=== PATIENT | male | born 1965 | race Caucasian/White ===

== ENCOUNTER 2025-06-11 10:49 | Emergency (ER) | payer MEDICAID ==
[~2025-06-11] VITALS: Ht 167.6 cm; Wt 79.4 kg
[2025-06-11 10:52] VITALS: TEMP 98.4
[2025-06-11 11:00] VITALS: BP 115/80; O2SAT 99
[2025-06-11 11:48] LABS: PLATELET COUNT (AUTO) 191 K/uL (150-450); RED BLOOD CELL COUNT(AUTO) 4.53 MIL/uL (4.5-6.0); RED CELL DISTRIBUTION WIDTH 13.9 % (11.5-15.0); WHITE BLOOD COUNT (AUTO) 5.2 K/uL (4.3-11.0)
[2025-06-11 11:50] LABS: APPEARANCE,URINE CLEAR (CLEAR); BLOOD, URINE NEGATIVE Ery/uL (NEGATIVE); LEUKOCYTE ESTERASE ,URINE NEGATIVE (NEGATIVE); NITRITE, URINE NEGATIVE (NEGATIVE); UGLUCOSE NEGATIVE (NEGATIVE)
[2025-06-11 11:54] LABS: CALCIUM, SERUM 9.2 mg/dL (8.5-10.1); CREATININE 1.3 mg/dL (0.6-1.3); SODIUM SERUM 144 mmol/L (136-145); UREA NITROGEN, BLOOD 23 mg/dL (7-18)
[2025-06-11 12:01] LABS: ALCOHOL, BLOOD < 3 mg/dL (0-10); ASPARTATE AMINOTRANSFERASE 10 U/L (15-37); TOTAL PROTEIN, SERUM 7.7 g/dL (6.4-8.2)
[2025-06-11 12:03] LABS: ADD URINE CULTURE NO; SQUAMOUS EPITHELIAL CELL,UR 0-2 /HPF (None Seen)
[2025-06-11 12:04] LABS: AMPHETAMINE, URINE NEGATIVE (NEGATIVE); BARBITURATE, URINE NEGATIVE (NEGATIVE); BENZODIAZEPINE, URINE NEGATIVE (NEGATIVE); CANNABINOID, URINE NEGATIVE (NEGATIVE); COCCAINE, URINE NEGATIVE (NEGATIVE); OPIATE, URINE NEGATIVE (NEGATIVE)
[2025-06-11] MEDS ORDERED: AMLO-213 PO (13:00)
[2025-06-11] MEDS ORDERED: QUET25TA PO (13:00)
[2025-06-11] MEDS ORDERED: BREX0.5T PO (13:00)
[2025-06-11] MEDS ORDERED: LOSA100T31 PO (13:00)
[2025-06-12] MEDS ORDERED: LOSARTAN POTASSIUM 50 MG TABLET PO SCH (09:00)
[2025-06-12] MEDS ORDERED: AMLODIPINE BESYLATE 10 MG TABLET PO SCH (09:00)
== END 2025-06-11 16:30 | disposition left against medical advice (07) ==
LOC: ER 10:57 → UNDOADMIN 14:06 → GPS 14:06 → ER 16:30
DX: R45.6 Violent behavior (principal); R45.1 Restlessness and agitation; Z79.899 Other long term (current) drug therapy; Z20.822 Contact with and (suspected) exposure to COVID-19
CPT/HCPCS: 36415; 80048-TC; 80076-TC; 81001; 85025-TC; G0480

== ENCOUNTER 2025-06-13 13:17 | Inpatient (IN) | payer MEDICAID ==
[~2025-06-13] VITALS: Ht 172.7 cm; Wt 79.4 kg
[~2025-06-13 13:17] MED LIST: AMLO-213 PO; BREX0.5T PO; LOSA100T31 PO; QUET25TA PO
[2025-06-13 14:23] LABS: PLATELET COUNT (AUTO) 199 K/uL (150-450); RED BLOOD CELL COUNT(AUTO) 4.18 MIL/uL (4.5-6.0); RED CELL DISTRIBUTION WIDTH 13.8 % (11.5-15.0); WHITE BLOOD COUNT (AUTO) 9.1 K/uL (4.3-11.0)
[2025-06-13 14:25] LABS: APPEARANCE,URINE CLEAR (CLEAR); BLOOD, URINE TRACE-INTA Ery/uL (NEGATIVE); LEUKOCYTE ESTERASE ,URINE NEGATIVE (NEGATIVE); NITRITE, URINE NEGATIVE (NEGATIVE); UGLUCOSE NEGATIVE (NEGATIVE)
[2025-06-13 14:25] LABS: CALCIUM, SERUM 9.1 mg/dL (8.5-10.1); CREATININE 1.4 mg/dL (0.6-1.3); SODIUM SERUM 145 mmol/L (136-145); UREA NITROGEN, BLOOD 39 mg/dL (7-18)
[2025-06-13 14:31] LABS: ALCOHOL, BLOOD < 3 mg/dL (0-10); ASPARTATE AMINOTRANSFERASE 63 U/L (15-37); TOTAL PROTEIN, SERUM 7.6 g/dL (6.4-8.2)
[2025-06-13 14:44] LABS: AMPHETAMINE, URINE NEGATIVE (NEGATIVE); BARBITURATE, URINE NEGATIVE (NEGATIVE); BENZODIAZEPINE, URINE NEGATIVE (NEGATIVE); CANNABINOID, URINE NEGATIVE (NEGATIVE); COCCAINE, URINE NEGATIVE (NEGATIVE); OPIATE, URINE NEGATIVE (NEGATIVE)
[2025-06-13 15:19] LABS: ADD URINE CULTURE NO
[2025-06-13] MEDS: IV NS 0.9% 1,000 ML BAG IV ONE (15:40)
[2025-06-13 17:03] LABS: ALCOHOL, BLOOD < 3 mg/dL (0-10)
[2025-06-13 20:30] VITALS: BP 118/76; TEMP 98.2; O2SAT 96
[2025-06-13] MEDS ORDERED: MAG HYDROX/AL HYDROX/SIMETH 30 ML UDC PO PRN (20:30)
[2025-06-13] MEDS ORDERED: LORAZEPAM 0.5 MG TABLET PO PRN ×2 (20:30)
[2025-06-13] MEDS ORDERED: MAGNESIUM HYDROXIDE 30 ML UDC PO PRN (20:30)
[2025-06-13] MEDS ORDERED: ACETAMINOPHEN 325 MG TABLET PO PRN (20:30)
[2025-06-13] MEDS ORDERED: TEMAZEPAM 7.5 MG CAPSULE PO PRN ×2 (20:30)
[2025-06-13] MEDS: BLOOD SUGAR DIAGNOSTIC 1 EACH STRIP IN ONE (21:15)
[2025-06-14 08:04] VITALS: BP 129/98; TEMP 97.7; O2SAT 98
[2025-06-14] MEDS: GABAPENTIN 100 MG CAPSULE PO SCH (13:21)
[2025-06-14 14:36] LABS: ASPARTATE AMINOTRANSFERASE 42.0 U/L (15-37); CALCIUM, SERUM 8.6 mg/dL (8.5-10.1); CREATININE 1.0 mg/dL (0.6-1.3); SODIUM SERUM 143.0 mmol/L (136-145); TOTAL PROTEIN, SERUM 7.2 g/dL (6.4-8.2); UREA NITROGEN, BLOOD 20.0 mg/dL (7-18)
[2025-06-14 16:00] VITALS: BP 109/84; TEMP 98.4; O2SAT 99
[2025-06-14] MEDS: QUETIAPINE FUMARATE 25 MG TABLET PO SCH (16:21)
[2025-06-14 19:46] VITALS: BP 134/89; TEMP 97.9; O2SAT 98
[2025-06-14 20:00] VITALS: BP 134/89; TEMP 97.9; O2SAT 98
[2025-06-15 08:00] VITALS: BP 131/84; TEMP 98.1; O2SAT 99
== END 2025-06-15 11:08 | disposition home or self-care (01) | DRG 751 ==
LOC: ER 13:20 → GPS 20:00
PROVIDERS: ADMIT Nurse Practitioner Psychiatric/Mental Health
DX: F29 Unspecified psychosis not due to a substance or known physiological condition (principal); N17.0 Acute kidney failure with tubular necrosis; G93.41 Metabolic encephalopathy; F01.518 Vascular dementia, unspecified severity, with other behavioral disturbance; R45.851 Suicidal ideations; F01.52 Vascular dementia, unspecified severity, with psychotic disturbance; F31.9 Bipolar disorder, unspecified; I10 Essential (primary) hypertension; Z20.822 Contact with and (suspected) exposure to COVID-19; M89.8X9 Other specified disorders of bone, unspecified site; Z79.899 Other long term (current) drug therapy; Z73.6 Limitation of activities due to disability; E86.0 Dehydration; E87.6 Hypokalemia; D64.9 Anemia, unspecified; G91.2 (Idiopathic) normal pressure hydrocephalus; Z98.2 Presence of cerebrospinal fluid drainage device; I69.354 Hemiplegia and hemiparesis following cerebral infarction affecting left non-dominant side; F20.9 Schizophrenia, unspecified
CPT/HCPCS: 36415; 70450-TC; 73110; 80048-TC; 80053-TC; 80076-TC; 81001; 82962-TC; 85025-TC; 87081-TC; 97110-TC; 97116-TC; 97530-TC; G0480; J7030

== ENCOUNTER 2025-06-15 12:45 | Inpatient (IN) | payer MEDICAID ==
[~2025-06-15] VITALS: Ht 152.4 cm; Wt 70.8 kg
[2025-06-15] MEDS ORDERED: Z GUARD REMEDY 4 OZ OINT TP PRN (13:00)
[2025-06-15] MEDS ORDERED: ONDANSETRON HCL/PF 4 MG/2 ML VIAL IVP PRN (13:00)
[2025-06-15] MEDS ORDERED: LORAZEPAM 0.5 MG TABLET PO PRN (13:00)
[2025-06-15 14:22] VITALS: BP 128/78; TEMP 98.4
[2025-06-15] MEDS: GABAPENTIN 100 MG CAPSULE PO SCH (14:47)
[2025-06-15] MEDS: QUETIAPINE FUMARATE 25 MG TABLET PO SCH (16:59)
[2025-06-15] MEDS: ACETAMINOPHEN 325 MG TABLET PO PRN (18:07)
[2025-06-16 06:25] LABS: PLATELET COUNT (AUTO) 203 K/uL (150-450); RED BLOOD CELL COUNT(AUTO) 4.41 MIL/uL (4.5-6.0); RED CELL DISTRIBUTION WIDTH 13.5 % (11.5-15.0); WHITE BLOOD COUNT (AUTO) 4.7 K/uL (4.3-11.0)
[2025-06-16 06:39] LABS: CALCIUM, SERUM 8.8 mg/dL (8.5-10.1); CREATININE 1.0 mg/dL (0.6-1.3); PHOSPHORUS 3.6 mg/dL (2.5-4.9); SODIUM SERUM 142.0 mmol/L (136-145); UREA NITROGEN, BLOOD 16.0 mg/dL (7-18)
[2025-06-16 08:00] VITALS: BP 138/98; TEMP 97.7; O2SAT 100
[2025-06-16] MEDS: PANTOPRAZOLE 40 MG TABLET.DR PO SCH (08:55)
== END 2025-06-16 15:13 | disposition short-term general hospital (02) | DRG 58 ==
LOC: MED 12:45
PROVIDERS: ADMIT Nurse Practitioner Family; ATTEND Nurse Practitioner Family
DX: T85.01XA Breakdown (mechanical) of ventricular intracranial (communicating) shunt, initial encounter (principal); I62.00 Nontraumatic subdural hemorrhage, unspecified; N17.9 Acute kidney failure, unspecified; F01.50 Vascular dementia, unspecified severity, without behavioral disturbance, psychotic disturbance, mood disturbance, and anxiety; F01.511 Vascular dementia, unspecified severity, with agitation; F29 Unspecified psychosis not due to a substance or known physiological condition; Y75.2 Prosthetic and other implants, materials and neurological devices associated with adverse incidents; Y92.89 Other specified places as the place of occurrence of the external cause; I69.254 Hemiplegia and hemiparesis following other nontraumatic intracranial hemorrhage affecting left non-dominant side; I10 Essential (primary) hypertension; F20.9 Schizophrenia, unspecified; F32.A Depression, unspecified; E87.6 Hypokalemia; G91.9 Hydrocephalus, unspecified; Z91.199 Patient's noncompliance with other medical treatment and regimen due to unspecified reason; Z79.899 Other long term (current) drug therapy
CPT/HCPCS: 36415; 73130-TC; 80048-TC; 83735-TC; 84100-TC; 85025-TC; 97110-TC; 97116-TC; 97530-TC; G0378